=== PATIENT | female | born 1960 | race Caucasian/White ===

== ENCOUNTER 2018-03-30 19:42 | Emergency (ER) | payer MEDICARE, SELFPAY ==
[2018-03-30 20:02] VITALS: BP 159/53; PULSE 85; RESP 18; TEMP 37.2; O2SAT 97; BMI 38.1
[2018-03-30] MEDS: SODIUM CHLORIDE 0.9% 1,000 ML 2000 ML IV (20:41)
--- NOTE | 2018-03-30 20:42 | ED.WEAKNESS ---
HPI - Weakness General Chief complaint: Diabetic Problem Stated complaint: DIABETIC,NOT FEELING WELL,WORRIED ABOUT KETONES Time Seen by Provider: 03/30/18 19:46 Source: patient and family Mode of arrival: ambulatory Limitations: no limitations History of Present Illness HPI Narrative: 57-year-old female with history of diabetes presents to the emergency department with a few days of worsening generalized sense of feeling unwell. She complains of some nausea and generalized abdominal pain and feels fatigued. She has achieved a diagnosis DKA a few times previously in [facility] that feels like. She denies any recent illness such as runny nose, sore throat or fever. She has had no chest pain or shortness of breath. She denies any change in her diabetic regimen and states she has not missed any doses of her medications MD Complaint: generalized weakness Onset (ago): day(s) Duration: constant Location: generalized Associated symptoms: nausea/vomiting Related Data Previous Rx's Medication Instructions Recorded pantoprazole [Protonix] 40 mg PO DAILY #30 tab 03/30/18 Review of Systems Review of Systems All systems reviewed & are unremarkable except as noted in HPI and below Constitutional Denies chills, Denies fever(s), Denies lethargy and Reports weakness Eyes Denies change in vision, Denies eye discharge, Denies irritation and Denies loss of vision ENT Ears, Nose, Mouth, and Throat: Denies change in voice, Denies neck pain and Denies sore throat Cardiovascular Denies chest pain, Denies irregular heart rhythm, Denies lightheadedness, Denies palpitations, Denies dyspnea, Denies dyspnea on exertion and Denies orthopnea Respiratory Denies cough, Denies dyspnea, Denies dyspnea on exertion and Denies wheezing Gastrointestinal Gastrointestinal: Reports abdominal pain, Denies change in bowel habits, Denies diarrhea, Reports nausea and Denies vomiting Genitourinary Denies hematuria, Denies flank pain, Denies urinary incontinence and Denies urinary urgency Musculoskeletal Denies neck pain Integumentary/Breasts Denies pruritus, Denies erythema, Denies rash and Denies wounds Neurologic Denies confusion, Denies loss of vision and Reports weakness Psychiatric Denies anxiety, Denies confusion, Denies depression, Denies homicidal ideation and Denies suicidal ideation Endocrine Denies palpitations Hematologic/Lymphatic Denies easy bruising Allergic/Immunologic Denies wheezing PFSH Medical History Diabetes (Acute) Social History Smoking Status: Former smoker Exam Narrative Exam Narrative: Pleasant 57-year-old female in no obvious or significant distress Initial Vital Signs Initial Vital Signs: Vital Signs Temperature 98.9 F 03/30/18 20:02 Pulse Rate 85 03/30/18 20:02 Respiratory Rate 18 03/30/18 20:02 Blood Pressure 159/53 H 03/30/18 20:02 Pulse Oximetry 97 03/30/18 20:02 Const General: cooperative and well developed Nutritional Appearance: well nourished Orientation: alert, awake, oriented x3 and not confused [facility] Head: normocephalic and atraumatic Ears: external ears normal and TM's normal bilaterally Nose: external nose normal and No nasal discharge Face and sinus: sinuses nontender, face symmetric, no sinus tenderness and No dry mucous membranes Mouth: oral mucosae normal and moist mucous membranes Teeth and gingiva: dentition normal Throat: tonsils normal and uvula midline Eyes General: appearance normal, both eyes and all related structures Eyelids: eyelids normal Conjunctivae: conjunctivae normal Sclera: sclerae normal Pupils: PERRL EOM: EOM intact bilaterally Neck Neck: normal visual inspection, trachea midline, No lymphadenopathy, No midline deformity and No JVD Lymphatic: No lymphedema Chest Chest: normal inspection of the chest Resp Effort & Inspection: normal respiratory effort, able to speak in complete sentences, no respiratory distress and no use of accessory muscles Auscultation: clear to auscultation bilaterally, no rales, no rhonchi and no wheezes Cardio Rate: regular rate Rhythm: regular rhythm Heart Sounds: no click, no gallops, no murmurs and no rubs Pulses: normal peripheral pulses GI Inspection: non-distended Palpation: soft, no hepatosplenomegaly, No guarding, No pulsatile mass and No tender Auscultation: normal bowel sounds Back/Spine/Pelvis Back: No CVA tenderness Cervical Spine: cervical ROM normal and No pain with cervical ROM Thoracic/Lumbar Spine: thoracic and lumbar spine normal to inspection Skin General: no rashes or lesions noted, No jaundice and No petechiae Neuro General: alert, oriented x3, gait normal and no focal motor deficits Speech: speech normal Extrem General: full ROM, no clubbing, cyanosis or edema, no pedal edema and no calf tenderness Psych Appearance: well kempt Mental Status: mental status grossly normal Attitude: cooperative Thought Content: normal and suicidality Judgment: judgment good Course Orders Ordered: ED Orders 03/30/18 20:15 Complete Blood Count AUTO DIFF Stat Comprehensive Metabolic Panel Stat Ketones (Beta-Hydroxybutyrate) Stat Procalcitonin Stat 03/30/18 20:28 EKG-12 Lead Stat 03/30/18 20:40 Blood Culture Stat 03/30/18 20:48 Lactate (Lactic Acid) Stat 03/30/18 20:53 Venous Blood Gas Stat 03/30/18 22:46 XR acute abdomen series Stat 03/30/18 22:58 Basic Metabolic Panel Stat Ketones (Beta-Hydroxybutyrate) Stat Discontinued Medications Sodium Chloride (Normal Saline 0.9%) 1,000 mls @ 2,000 mls/hr IV BOLUS ONE Stop: 03/30/18 20:57 Last Infusion: 03/30/18 21:13 Dose: 0 mls/hr Admin: 03/30/18 20:41 Dose: 2,000 mls/hr Sodium Chloride (Normal Saline 0.45%) 1,000 mls @ 1,000 mls/hr IV BOLUS ONE Stop: 03/30/18 22:12 Last Infusion: 03/30/18 21:53 Dose: 0 mls/hr Admin: 03/30/18 21:15 Dose: 2,000 mls/hr Lactated Ringer's (Lactated Ringers) 1,000 mls @ 1,000 mls/hr IV BOLUS ONE Stop: 03/30/18 23:45 Last Infusion: 03/31/18 00:32 Dose: 0 mls/hr Admin: 03/30/18 23:02 Dose: 1,000 mls/hr Insulin Human Regular (Humulin R) 10 unit SUBCUT NOW ONE Stop: 03/30/18 21:35 Last Admin: 03/30/18 21:51 Dose: 10 unit Pantoprazole Sodium (Protonix) 40 mg IV NOW ONE Stop: 03/30/18 22:46 Last Admin: 03/30/18 23:02 Dose: 40 mg Vital Signs - 8 hr 03/30/18 20:02 03/30/18 20:56 03/30/18 21:47 Temperature 98.9 F Pulse Rate 85 74 77 Respiratory Rate 18 20 17 Blood Pressure 159/53 H Blood Pressure [Left Arm] 138/55 H 144/67 H Pulse Oximetry 97 99 98 03/31/18 00:33 Temperature Pulse Rate 77 Respiratory Rate 16 Blood Pressure 150/78 H Blood Pressure [Left Arm] Pulse Oximetry 100 MDM - Weakness Lab Data Result diagrams: 03/30/18 20:15 03/30/18 22:58 Lab Results 03/30/18 03/30/18 03/30/18 Range/Units 20:15 20:15 20:15 WBC 6.2 (4.5-11.0) X10^3/uL RBC 4.76 (4.0-5.2) X10^6/uL Hgb 14.3 (12.0-16.0) g/dL Hct 42.4 (36-46) % MCV 89.0 (80-100) fL MCH 30.0 (26-34) PG MCHC 33.7 (30-36) % RDW 13.2 (11.6-14.8) % Plt Count 248 (150-400) X10^3/uL Neut % (Auto) 57.3 (50-75) % Lymph % (Auto) 32.8 (25-40) % [place] % (Auto) 7.5 (3-14) % Eos % (Auto) 1.6 L (2-4) % Baso % (Auto) 0.8 (0-2) % Neut # (Auto) 3500 (5617-4617) /uL VBG pH (7.31-7.41) VBG pCO2 (45-50) mmHg VBG pO2 (35-45) mmHg VBG HCO3 (24-28) mmol/L VBG Total CO2 (24-29) mmol/L VBG O2 Saturation (70-75) % VBG Base Excess (0-4) mmol/L Sodium 136 L (137-145) mmol/L Potassium 4.7 (3.4-5.1) mmol/L Chloride 97 L (98-107) mmol/L Carbon Dioxide 28 (22-32) mmol/L BUN 19 H (7-17) mg/dL Creatinine 0.70 (0.52-1.04) mg/dL Estimated GFR > 60.0 (>60) mL/min BUN/Creatinine Ratio 27.1 H (6-22) Glucose 410 H (70-100) mg/dL Lactate (0.7-2.1) mmol/L Calcium 9.2 (8.4-10.2) mg/dL Total Bilirubin 0.6 (0.2-1.3) mg/dL AST 29 (14-36) IU/L ALT 27 (9-52) IU/L Alkaline Phosphatase 81 (38-126) U/L Total Protein 7.2 (6.3-8.2) g/dL Albumin 4.1 (3.5-5.0) g/dL Globulin 3.1 (1.7-4.1) g/dL Albumin/Globulin Ratio 1.3 (1.0-2.8) Procalcitonin < 0.05 (<0.5) ng/mL Ketones 1.28 H (<0.27) mmol/L 03/30/18 03/30/18 03/30/18 Range/Units 20:48 20:53 22:58 WBC (4.5-11.0) X10^3/uL RBC (4.0-5.2) X10^6/uL Hgb (12.0-16.0) g/dL Hct (36-46) % MCV (80-100) fL MCH (26-34) PG MCHC (30-36) % RDW (11.6-14.8) % Plt Count (150-400) X10^3/uL Neut % (Auto) (50-75) % Lymph % (Auto) (25-40) % [place] % (Auto) (3-14) % Eos % (Auto) (2-4) % Baso % (Auto) (0-2) % Neut # (Auto) (4541-2603) /uL VBG pH 7.42 H (7.31-7.41) VBG pCO2 48.4 (45-50) mmHg VBG pO2 84 H (35-45) mmHg VBG HCO3 31 H (24-28) mmol/L VBG Total CO2 33 H (24-29) mmol/L VBG O2 Saturation 96 H (70-75) % VBG Base Excess 7.0 H (0-4) mmol/L Sodium 136 L (137-145) mmol/L Potassium 4.5 (3.4-5.1) mmol/L Chloride 101 (98-107) mmol/L Carbon Dioxide 28 (22-32) mmol/L BUN 18 H (7-17) mg/dL Creatinine 0.80 (0.52-1.04) mg/dL Estimated GFR > 60.0 (>60) mL/min BUN/Creatinine Ratio 22.5 H (6-22) Glucose 368 H (70-100) mg/dL Lactate 1.3 (0.7-2.1) mmol/L Calcium 8.5 (8.4-10.2) mg/dL Total Bilirubin (0.2-1.3) mg/dL AST (14-36) IU/L ALT (9-52) IU/L Alkaline Phosphatase (38-126) U/L Total Protein (6.3-8.2) g/dL Albumin (3.5-5.0) g/dL Globulin (1.7-4.1) g/dL Albumin/Globulin Ratio (1.0-2.8) Procalcitonin (<0.5) ng/mL Ketones 1.02 H (<0.27) mmol/L Discharge Plan Departure Patient Disposition: Home, Self-Care Clinical Impression: Acute hyperglycemia Discharge Date/Time: 03/31/18 00:34 Interventions: ED Discharge Assessment Last Done: 03/31/18 00:33 Instructions: DI for Hyperglycemia -- Adult Activity Restrictions/Additional Instructions: *You have been diagnosed with [ hyperglycemia ] *What to do: * continue to take medications as directed *Follow up with your primary care provider in 2-3 days, call for an appointment. Let them know you were seen in the Emergency Department and that we ask that you be seen in follow up *Return to ER if you should have any new, worsening or concerning symptoms, such as [fever over 101 F, worsening fatigue, chest pain, shortness of breath, other bothersome symptoms ] Prescriptions: New pantoprazole [Protonix] 40 mg tablet,delayed release (DR/EC) 40 mg PO DAILY Qty: 30 RF: 0 Referrals: PCP, Your [Other]
[2018-03-30 20:44] LABS: Add Manual Diff / Slide Review NO; Basophils Percent Auto 0.8 % (0-2); Eosinophils Percent Auto 1.6 % (2-4); Hematocrit 42.4 % (36-46); Hemoglobin 14.3 g/dL (12.0-16.0); Lymphocytes Percent Auto 32.8 % (25-40); Mean Corpuscular HGB Conc 33.7 % (30-36); Monocytes Percent Auto 7.5 % (3-14); Neutrophils Absolute Auto 3500 /uL (3000-5900); Neutrophils Percent Auto 57.3 % (50-75); Platelet Count 248 X10^3/uL (150-400); Red Blood Cell Count 4.76 X10^6/uL (4.0-5.2); Red Cell Distribution Width 13.2 % (11.6-14.8); White Blood Cell Count 6.2 X10^3/uL (4.5-11.0)
[2018-03-30 20:56] VITALS: BP 138/55; PULSE 74; RESP 20; O2SAT 99
[2018-03-30 21:11] LABS: Procalcitonin < 0.05 ng/mL (<0.5)
[2018-03-30 21:12] LABS: Alanine Aminotransferase 27 IU/L (9-52); Albumin 4.1 g/dL (3.5-5.0); Albumin Globulin Ratio 1.3 (1.0-2.8); Alkaline Phosphatase 81 U/L (38-126); Aspartate Aminotransferase 29 IU/L (14-36); BUN Creatinine Ratio 27.1 (6-22); Bilirubin Total 0.6 mg/dL (0.2-1.3); Blood Urea Nitrogen 19 mg/dL (7-17); Calcium 9.2 mg/dL (8.4-10.2); Carbon Dioxide 28 mmol/L (22-32); Chloride 97 mmol/L (98-107); Estimated Glomerular Filt Rate > 60.0 mL/min (>60); Globulin 3.1 g/dL (1.7-4.1); Glucose 410 mg/dL (70-100); Potassium 4.7 mmol/L (3.4-5.1); Sodium 136 mmol/L (137-145); Total Protein 7.2 g/dL (6.3-8.2)
[2018-03-30 21:15] LABS: PCO2 VBG 48.4 mmHg (45-50); PO2 VBG 84 mmHg (35-45); pH VBG 7.42 (7.31-7.41)
[2018-03-30] MEDS: SODIUM CHLORIDE 0.45% 1,000 ML 2000 ML IV (21:15)
[2018-03-30 21:16] LABS: HCO3 VBG 31 mmol/L (24-28); Oxygen Saturation VBG 96 % (70-75); Total CO2 VBG 33 mmol/L (24-29)
[2018-03-30 21:16] LABS: HEMOLYSIS 24 (0-50); Ketones (Beta-Hydroxybutyrate) 1.28 mmol/L (<0.27)
[2018-03-30 21:25] LABS: Lactate (Lactic Acid) 1.3 mmol/L (0.7-2.1)
[2018-03-30 21:47] VITALS: BP 144/67; PULSE 77; RESP 17; O2SAT 98
[2018-03-30] MEDS: INSULIN REGULAR 100 UNIT/ML 3 ML VIAL 10 UNIT SUBCUT (21:51)
--- NOTE | 2018-03-30 22:31 | ED_ITS ---
HPI - Weakness General Chief complaint: Diabetic Problem Stated complaint: DIABETIC,NOT FEELING WELL,WORRIED ABOUT KETONES Time Seen by Provider: 03/30/18 19:46 Source: patient and family Mode of arrival: ambulatory Limitations: no limitations History of Present Illness HPI Narrative: 57-year-old female with history of diabetes presents to the emergency department with a few days of worsening generalized sense of feeling unwell. She complains of some nausea and generalized abdominal pain and feels fatigued. She has achieved a diagnosis DKA a few times previously in [facility] that feels like. She denies any recent illness such as runny nose, sore throat or fever. She has had no chest pain or shortness of breath. She denies any change in her diabetic regimen and states she has not missed any doses of her medications MD Complaint: generalized weakness Onset (ago): day(s) Duration: constant Location: generalized Associated symptoms: nausea/vomiting Related Data Previous Rx's Medication Instructions Recorded pantoprazole [Protonix] 40 mg PO DAILY #30 tab 03/30/18 Review of Systems Review of Systems All systems reviewed & are unremarkable except as noted in HPI and below Constitutional Denies chills, Denies fever(s), Denies lethargy and Reports weakness Eyes Denies change in vision, Denies eye discharge, Denies irritation and Denies loss of vision ENT Ears, Nose, Mouth, and Throat: Denies change in voice, Denies neck pain and Denies sore throat Cardiovascular Denies chest pain, Denies irregular heart rhythm, Denies lightheadedness, Denies palpitations, Denies dyspnea, Denies dyspnea on exertion and Denies orthopnea Respiratory Denies cough, Denies dyspnea, Denies dyspnea on exertion and Denies wheezing Gastrointestinal Gastrointestinal: Reports abdominal pain, Denies change in bowel habits, Denies diarrhea, Reports nausea and Denies vomiting Genitourinary Denies hematuria, Denies flank pain, Denies urinary incontinence and Denies urinary urgency Musculoskeletal Denies neck pain Integumentary/Breasts Denies pruritus, Denies erythema, Denies rash and Denies wounds Neurologic Denies confusion, Denies loss of vision and Reports weakness Psychiatric Denies anxiety, Denies confusion, Denies depression, Denies homicidal ideation and Denies suicidal ideation Endocrine Denies palpitations Hematologic/Lymphatic Denies easy bruising Allergic/Immunologic Denies wheezing PFSH Medical History Diabetes (Acute) Social History Smoking Status: Former smoker Exam Narrative Exam Narrative: Pleasant 57-year-old female in no obvious or significant distress Initial Vital Signs Initial Vital Signs: Vital Signs Temperature 98.9 F 03/30/18 20:02 Pulse Rate 85 03/30/18 20:02 Respiratory Rate 18 03/30/18 20:02 Blood Pressure 159/53 H 03/30/18 20:02 Pulse Oximetry 97 03/30/18 20:02 Const General: cooperative and well developed Nutritional Appearance: well nourished Orientation: alert, awake, oriented x3 and not confused [facility] Head: normocephalic and atraumatic Ears: external ears normal and TM's normal bilaterally Nose: external nose normal and No nasal discharge Face and sinus: sinuses nontender, face symmetric, no sinus tenderness and No dry mucous membranes Mouth: oral mucosae normal and moist mucous membranes Teeth and gingiva: dentition normal Throat: tonsils normal and uvula midline Eyes General: appearance normal, both eyes and all related structures Eyelids: eyelids normal Conjunctivae: conjunctivae normal Sclera: sclerae normal Pupils: PERRL EOM: EOM intact bilaterally Neck Neck: normal visual inspection, trachea midline, No lymphadenopathy, No midline deformity and No JVD Lymphatic: No lymphedema Chest Chest: normal inspection of the chest Resp Effort & Inspection: normal respiratory effort, able to speak in complete sentences, no respiratory distress and no use of accessory muscles Auscultation: clear to auscultation bilaterally, no rales, no rhonchi and no wheezes Cardio Rate: regular rate Rhythm: regular rhythm Heart Sounds: no click, no gallops, no murmurs and no rubs Pulses: normal peripheral pulses GI Inspection: non-distended Palpation: soft, no hepatosplenomegaly, No guarding, No pulsatile mass and No tender Auscultation: normal bowel sounds Back/Spine/Pelvis Back: No CVA tenderness Cervical Spine: cervical ROM normal and No pain with cervical ROM Thoracic/Lumbar Spine: thoracic and lumbar spine normal to inspection Skin General: no rashes or lesions noted, No jaundice and No petechiae Neuro General: alert, oriented x3, gait normal and no focal motor deficits Speech: speech normal Extrem General: full ROM, no clubbing, cyanosis or edema, no pedal edema and no calf tenderness Psych Appearance: well kempt Mental Status: mental status grossly normal Attitude: cooperative Thought Content: normal and suicidality Judgment: judgment good Course Orders Ordered: ED Orders 03/30/18 20:15 Complete Blood Count AUTO DIFF Stat Comprehensive Metabolic Panel Stat Ketones (Beta-Hydroxybutyrate) Stat Procalcitonin Stat 03/30/18 20:28 EKG-12 Lead Stat 03/30/18 20:40 Blood Culture Stat 03/30/18 20:48 Lactate (Lactic Acid) Stat 03/30/18 20:53 Venous Blood Gas Stat 03/30/18 22:46 XR acute abdomen series Stat 03/30/18 22:58 Basic Metabolic Panel Stat Ketones (Beta-Hydroxybutyrate) Stat Discontinued Medications Sodium Chloride (Normal Saline 0.9%) 1,000 mls @ 2,000 mls/hr IV BOLUS ONE Stop: 03/30/18 20:57 Last Infusion: 03/30/18 21:13 Dose: 0 mls/hr Admin: 03/30/18 20:41 Dose: 2,000 mls/hr Sodium Chloride (Normal Saline 0.45%) 1,000 mls @ 1,000 mls/hr IV BOLUS ONE Stop: 03/30/18 22:12 Last Infusion: 03/30/18 21:53 Dose: 0 mls/hr Admin: 03/30/18 21:15 Dose: 2,000 mls/hr Lactated Ringer's (Lactated Ringers) 1,000 mls @ 1,000 mls/hr IV BOLUS ONE Stop: 03/30/18 23:45 Last Infusion: 03/31/18 00:32 Dose: 0 mls/hr Admin: 03/30/18 23:02 Dose: 1,000 mls/hr Insulin Human Regular (Humulin R) 10 unit SUBCUT NOW ONE Stop: 03/30/18 21:35 Last Admin: 03/30/18 21:51 Dose: 10 unit Pantoprazole Sodium (Protonix) 40 mg IV NOW ONE Stop: 03/30/18 22:46 Last Admin: 03/30/18 23:02 Dose: 40 mg Vital Signs - 8 hr 03/30/18 20:02 03/30/18 20:56 03/30/18 21:47 Temperature 98.9 F Pulse Rate 85 74 77 Respiratory Rate 18 20 17 Blood Pressure 159/53 H Blood Pressure [Left Arm] 138/55 H 144/67 H Pulse Oximetry 97 99 98 03/31/18 00:33 Temperature Pulse Rate 77 Respiratory Rate 16 Blood Pressure 150/78 H Blood Pressure [Left Arm] Pulse Oximetry 100 MDM - Weakness Lab Data Result diagrams: 03/30/18 20:15 03/30/18 22:58 Lab Results 03/30/18 03/30/18 03/30/18 Range/Units 20:15 20:15 20:15 WBC 6.2 (4.5-11.0) X10^3/uL RBC 4.76 (4.0-5.2) X10^6/uL Hgb 14.3 (12.0-16.0) g/dL Hct 42.4 (36-46) % MCV 89.0 (80-100) fL MCH 30.0 (26-34) PG MCHC 33.7 (30-36) % RDW 13.2 (11.6-14.8) % Plt Count 248 (150-400) X10^3/uL Neut % (Auto) 57.3 (50-75) % Lymph % (Auto) 32.8 (25-40) % [place] % (Auto) 7.5 (3-14) % Eos % (Auto) 1.6 L (2-4) % Baso % (Auto) 0.8 (0-2) % Neut # (Auto) 3500 (9747-3073) /uL VBG pH (7.31-7.41) VBG pCO2 (45-50) mmHg VBG pO2 (35-45) mmHg VBG HCO3 (24-28) mmol/L VBG Total CO2 (24-29) mmol/L VBG O2 Saturation (70-75) % VBG Base Excess (0-4) mmol/L Sodium 136 L (137-145) mmol/L Potassium 4.7 (3.4-5.1) mmol/L Chloride 97 L (98-107) mmol/L Carbon Dioxide 28 (22-32) mmol/L BUN 19 H (7-17) mg/dL Creatinine 0.70 (0.52-1.04) mg/dL Estimated GFR > 60.0 (>60) mL/min BUN/Creatinine Ratio 27.1 H (6-22) Glucose 410 H (70-100) mg/dL Lactate (0.7-2.1) mmol/L Calcium 9.2 (8.4-10.2) mg/dL Total Bilirubin 0.6 (0.2-1.3) mg/dL AST 29 (14-36) IU/L ALT 27 (9-52) IU/L Alkaline Phosphatase 81 (38-126) U/L Total Protein 7.2 (6.3-8.2) g/dL Albumin 4.1 (3.5-5.0) g/dL Globulin 3.1 (1.7-4.1) g/dL Albumin/Globulin Ratio 1.3 (1.0-2.8) Procalcitonin < 0.05 (<0.5) ng/mL Ketones 1.28 H (<0.27) mmol/L 03/30/18 03/30/18 03/30/18 Range/Units 20:48 20:53 22:58 WBC (4.5-11.0) X10^3/uL RBC (4.0-5.2) X10^6/uL Hgb (12.0-16.0) g/dL Hct (36-46) % MCV (80-100) fL MCH (26-34) PG MCHC (30-36) % RDW (11.6-14.8) % Plt Count (150-400) X10^3/uL Neut % (Auto) (50-75) % Lymph % (Auto) (25-40) % [place] % (Auto) (3-14) % Eos % (Auto) (2-4) % Baso % (Auto) (0-2) % Neut # (Auto) (7438-1313) /uL VBG pH 7.42 H (7.31-7.41) VBG pCO2 48.4 (45-50) mmHg VBG pO2 84 H (35-45) mmHg VBG HCO3 31 H (24-28) mmol/L VBG Total CO2 33 H (24-29) mmol/L VBG O2 Saturation 96 H (70-75) % VBG Base Excess 7.0 H (0-4) mmol/L Sodium 136 L (137-145) mmol/L Potassium 4.5 (3.4-5.1) mmol/L Chloride 101 (98-107) mmol/L Carbon Dioxide 28 (22-32) mmol/L BUN 18 H (7-17) mg/dL Creatinine 0.80 (0.52-1.04) mg/dL Estimated GFR > 60.0 (>60) mL/min BUN/Creatinine Ratio 22.5 H (6-22) Glucose 368 H (70-100) mg/dL Lactate 1.3 (0.7-2.1) mmol/L Calcium 8.5 (8.4-10.2) mg/dL Total Bilirubin (0.2-1.3) mg/dL AST (14-36) IU/L ALT (9-52) IU/L Alkaline Phosphatase (38-126) U/L Total Protein (6.3-8.2) g/dL Albumin (3.5-5.0) g/dL Globulin (1.7-4.1) g/dL Albumin/Globulin Ratio (1.0-2.8) Procalcitonin (<0.5) ng/mL Ketones 1.02 H (<0.27) mmol/L Discharge Plan Departure Patient Disposition: Home, Self-Care Clinical Impression: Acute hyperglycemia Discharge Date/Time: 03/31/18 00:34 Interventions: ED Discharge Assessment Last Done: 03/31/18 00:33 Instructions: DI for Hyperglycemia -- Adult Activity Restrictions/Additional Instructions: *You have been diagnosed with [ hyperglycemia ] *What to do: * continue to take medications as directed *Follow up with your primary care provider in 2-3 days, call for an appointment. Let them know you were seen in the Emergency Department and that we ask that you be seen in follow up *Return to ER if you should have any new, worsening or concerning symptoms , such as [fever over 101 F, worsening fatigue, chest pain, shortness of breath , other bothersome symptoms ] Prescriptions: New pantoprazole [Protonix] 40 mg tablet,delayed release (DR/EC) 40 mg PO DAILY Qty: 30 RF: 0 Referrals: PCP, Your [Other]
--- NOTE | 2018-03-30 22:46 | DI.RAD.S_ITS ---
PROCEDURE: XR ACUTE ABDOMEN SERIES INDICATIONS: Abdominal pain TECHNIQUE: One view chest and two views of the abdomen were acquired. COMPARISON: None. FINDINGS: Surgical changes and devices: Surgical clips in abdomen. Chest: There is a calcified granuloma in the left lower lung zone. Lungs are otherwise clear. Heart size is normal. No pleural effusions. No pneumoperitoneum. Abdomen: Bowel gas pattern is normal. No suspicious calcifications. Visualized solid organ contours appear normal. Bones: No suspicious bony lesions. IMPRESSION: Normal bowel gas pattern. Dictated by: Mary Gutierres M.D. on 03/31/2018 at 7:14 Approved by: Mary Gutierres M.D. on 03/31/2018 at 7:15
[2018-03-30] MEDS: LACTATED RINGERS 1,000 ML 1000 ML IV (23:02)
[2018-03-30] MEDS: PANTOPRAZOLE 40 MG VIAL IV (23:02)
[2018-03-30 23:36] LABS: BUN Creatinine Ratio 22.5 (6-22); Blood Urea Nitrogen 18 mg/dL (7-17); Calcium 8.5 mg/dL (8.4-10.2); Carbon Dioxide 28 mmol/L (22-32); Chloride 101 mmol/L (98-107); Estimated Glomerular Filt Rate > 60.0 mL/min (>60); Glucose 368 mg/dL (70-100); HEMOLYSIS < 15 (0-50); Potassium 4.5 mmol/L (3.4-5.1); Sodium 136 mmol/L (137-145)
[2018-03-30 23:38] LABS: Ketones (Beta-Hydroxybutyrate) 1.02 mmol/L (<0.27)
[2018-03-31 00:33] VITALS: BP 150/78; PULSE 77; RESP 16; O2SAT 100
== END 2018-03-31 00:34 | disposition home or self-care (01) ==
PROVIDERS: Emergency Provider Emergency Medicine
DX: E11.65 Type 2 diabetes mellitus with hyperglycemia (principal)
CPT/HCPCS: 36415; 36591; 74022; 80048; 80053; 81003; 82009; 82805; 82962; 83605; 84145; 85025; 87040; 93005; 93041; 96361; 96365; 96366; 96372; 96375; 99284; 99285; C9113; J7050